=== PATIENT | male | born 1975 | race Caucasian/White ===

== ENCOUNTER 2023-02-12 18:56 | Emergency (ER) | payer OTHER ==
[2023-02-12] MEDS ORDERED: NITROGLYCERIN SL 0.4 MG TABLET SL STA (19:07)
[2023-02-12] MEDS ORDERED: ASPIRIN CHEW 81 MG TABLET PO STA (19:07)
--- NOTE | 2023-02-12 19:11 | ED Physician Documentation ---
History of Present Illness - Stated complaint Stated Complaint: CHEST PX - Chief complaint Chief Complaint: Cardiac - Additonal information Additional information: 47-year-old male who denies any pertinent past medical history including diab etes or hypertension presents emergency department for evaluation of cute onset substernal chest pain that began about 6 PM. He was simply talking with his . Initially described it as sharp but then became more pressure like and throbbing. Radiated to the left arm with some nausea. He did take a Tylenol at home. Review of Systems Constitutional: denies: Fever Cardiac: reports: Chest pain / pressure. denies: Palpitations Respiratory: reports: Reviewed and negative GI: reports: Reviewed and negative : reports: Reviewed and negative Skin: reports: Reviewed and negative PD PAST MEDICAL HISTORY - Past Surgical History Past Surgical History: No - Present Medications Home Medications: Ambulatory Orders Medication Instructions Recorded Confirmed HYDROcod/ACETAM 5/325 [Vicodin 1 - 2 ea PO Q6H PRN #15 tablet 01/09/13 5/325] No Known Home Medications 01/09/13 01/09/13 - Allergies Allergies/Adverse Reactions: Allergies Allergy/AdvReac Type Severity Reaction Status Date / Time Egg Derived AdvReac Intermediate "food Verified 02/12/23 18:59 poisoning" Penicillins AdvReac Intermediate n/v/d Verified 02/12/23 18:59 - Social History Does the pt smoke?: No Smoking Status: Never smoker Does the pt drink ETOH?: Yes Does the pt have substance abuse?: Yes PD ED PE NORMAL - General General: Alert and oriented X 3, Well developed/nourished. 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 Relevant findings are: Rate: Rate (enter#) (82) Rhythm: NSR [place]: Normal Intervals: Normal MO. No: Prolonged QT QRS: Normal Ischemia: Normal ST segments Compare to prior EKG: Old EKG unavailable Computer interpretation: Agree with computer - Labs Labs: Laboratory Tests 02/12/23 02/12/23 19:15 19:15 WBC 10.9 H RBC 5.07 Hgb 15.7 Hct 45.8 MCV 90.3 MCH 31.0 MCHC 34.3 RDW 12.4 Plt Count 301 MPV 9.5 Neut # (Auto) 6.5 Lymph # (Auto) 2.9 [place] # (Auto) 1.1 H Eos # (Auto) 0.1 Baso # (Auto) 0.1 Absolute Nucleated RBC 0.00 Nucleated RBC % 0.0 Sodium 139 Potassium 3.6 Chloride 103 Carbon Dioxide 31 Anion Gap 5.0 L BUN 12 Creatinine 0.9 Estimated GFR (MDRD) 90 Glucose 105 H Calcium 9.7 Total Bilirubin 0.4 AST 25 ALT 39 Alkaline Phosphatase 80 Troponin I High Sens 5.8 Total Protein 7.2 Albumin 4.7 Globulin 2.5 Albumin/Globulin Ratio 1.9 Lipase 48 - Rads (name of study) cxr Relevant Findings:: Final report received (No acute cardiopulmonary process) PD Medical Decision Making - ED course Complexity details: reviewed results, re-evaluated patient, considered differential, d/w patient ED course: 47-year-old male who does not seek medical care regularly presents to the emergency department for evaluation of substernal sharp chest pain that became chest pressure radiating to the left arm. Symptoms began at 6 PM. Denies any previous coronary artery disease or history of hypertension. On presentation the emergency department he is alert and very well-appearing. His initial blood pressure showed some moderate hypertension 158/102. His EKG is interpreted by myself was normal sinus rhythm without ischemic changes. Chest x-ray showed no findings of pneumothorax, pneumonia, cardiomegaly or pleural effusion. Subsequently patient did obtain CBC and electrolytes. Per my interpretation the initial CBC was without acute findings. His electrolytes including a troponin X2 were negative. With the history and presentation on exam I did administer the patient 325 of aspirin as well as gave him 0.4 mg of nitroglycerin. On reevaluation he stated that the chest pain was resolving. His blood pressure had also improved. At the time of final evaluation the patient appeared well and was free of chest pain. His heart score is 3 putting him at low risk for MACE. He is advised very close follow-up with his care team at the [facility] to request urgent referral for cardiac stress testing. He is advised to begin taking 81 mg of aspirin daily. Usual emergent return precautions for worsening symptoms were discussed Departure - Departure Disposition: Home, Self Care Clinical Impression: Chest pain Qualifiers: Chest pain type: unspecified Qualified Code(s): R07.9 - Chest pain, unspecified Condition: Stable Record reviewed to determine appropriate education?: Yes Instructions: ED Heart Disease Risk Factors Comments: You are seen today in the emergency department because you develop chest pain about 6 PM. Your chest x-ray, EKG labs and 2 troponins have all been normal. However given your age and history it is imperative that you follow closely with your primary care provider as you should be referred for an emergent or urgent cardiac stress test. I do recommend that you begin taking a daily 81 mg aspirin. If at any point you develop sudden severe chest pain, have any fainting episodes, uncontrolled vomiting or return of similar symptoms you do need to return to the emergency department. Forms: PCP List
--- NOTE | 2023-02-12 19:26 | XRAY Report ---
PROCEDURE: Chest 1 View X-Ray INDICATIONS: Chest pain TECHNIQUE: One view of the chest was acquired. COMPARISON: None. FINDINGS: Surgical changes and devices: None. Lungs and pleura: No pleural effusions or pneumothorax. Lungs are clear. Mediastinum: Mediastinal contours appear normal. Heart size is normal. Bones and chest wall: No suspicious bony lesions. Overlying soft tissues appear unremarkable. IMPRESSION: No acute cardiopulmonary process. Reviewed by: Nimisha Bell MD on 02/12/2023 7:25 PM PDT Approved by: Nimisha Bell MD on 02/12/2023 7:25 PM PDT Station ID: [id number]
[2023-02-12 19:27] LABS: BASOPHILS # (AUTO) 0.1 10^3/uL (0.0-0.1); BASOPHILS % (AUTO) 0.7 %; EOSINOPHILS # (AUTO) 0.1 10^3/uL (0.0-0.7); EOSINOPHILS % (AUTO) 1.1 %; HCT - HEMATOCRIT 45.8 % (42.0-52.0); HGB - HEMOGLOBIN 15.7 g/dL (14.0-18.0); LYMPHOCYTES # (AUTO) 2.9 10^3/uL (1.5-3.5); LYMPHOCYTES % (AUTO) 26.3 %; MEAN CORPUSCULAR HGB CONC 34.3 g/dL (32.0-36.0); MEAN CORPUSCULAR VOLUME 90.3 fL (80.0-94.0); MEAN PLATELET VOLUME 9.5 fL (7.4-11.4); MONOCYTES # (AUTO) 1.1 10^3/uL (0.0-1.0); MONOCYTES % (AUTO) 10.2 %; NEUTROPHILS # (AUTO) 6.5 10^3/uL (1.5-6.6); NEUTROPHILS % (AUTO) 60.2 %; PLT - PLATELET COUNT 301 10^3/uL (130-450); RED BLOOD COUNT 5.07 10^6/uL (4.70-6.10); RED CELL DISTRIBUTION WIDTH 12.4 % (12.0-15.0); WHITE BLOOD COUNT 10.9 x10^3/uL (4.8-10.8)
[2023-02-12 19:40] LABS: ALBUMIN 4.7 g/dL (3.2-5.5); ALBUMIN/GLOBULIN RATIO 1.9 (1.0-2.2); BILIRUBIN,TOTAL 0.4 mg/dL (0.2-1.0); CALCIUM 9.7 mg/dL (8.5-10.3); CREATININE 0.9 mg/dL (0.6-1.3); POTASSIUM 3.6 mmol/L (3.5-4.5); TOTAL PROTEIN 7.2 g/dL (6.4-8.9)
[2023-02-12 19:43] LABS: TROPONIN I HIGH SENSITIVITY 5.8 ng/L (2.3-19.7)
[2023-02-12 22:02] VITALS: BP 138/86; O2SAT 96
== END 2023-02-12 22:01 | disposition home or self-care (01) ==
LOC: ED 18:56
DX: R07.9 Chest pain, unspecified (principal); I10 Essential (primary) hypertension
CPT/HCPCS: 36415; 71045; 80053; 83690; 84484; 85025; 93005; 99283; 99284; A9270

== ENCOUNTER 2023-06-04 08:00 | Outpatient (CLI) | payer OTHER ==
--- NOTE | 2023-06-04 11:40 | XRAY Report ---
PROCEDURE: Chest 2V INDICATIONS: SHORTNESS OF BREATH TECHNIQUE: 2 views of the chest were acquired. COMPARISON: 02/12/2023 FINDINGS: Surgical changes and devices: None. Lungs and pleura: Low lung volumes. No consolidation or pleural effusion. Mediastinum: Normal heart size Bones and chest wall: Degenerative changes. IMPRESSION: No acute radiographic abnormality. Low lung volumes. Reviewed by: Aren Snell MD on 06/04/2023 11:39 AM PST Approved by: Aren Snell MD on 06/04/2023 11:39 AM PST Station ID: [id number]
== END 2023-06-04 23:59 | disposition home or self-care (01) ==
LOC: DI.S 08:00
PROVIDERS: ATTEND Registered Nurse
DX: R06.02 Shortness of breath (principal)

== ENCOUNTER 2023-10-31 10:12 | Outpatient (CLI) | payer OTHER | END 2023-10-31 23:59 | disposition home or self-care (01) | LOC: LAB.S 10:12 | PROVIDERS: ATTEND Registered Nurse | DX: L03.90 Cellulitis, unspecified (principal); N48.89 Other specified disorders of penis; R30.0 Dysuria | CPT/HCPCS: 87086 ==

== ENCOUNTER 2024-01-20 11:03 | Outpatient (CLI) | payer OTHER ==
[2024-01-20 11:29] LABS: CALCIUM 9.9 mg/dL (8.5-10.3); CREATININE 0.8 mg/dL (0.6-1.3); POTASSIUM 4.3 mmol/L (3.5-4.5)
== END 2024-01-20 11:04 | disposition home or self-care (01) ==
LOC: LAB 11:03
PROVIDERS: ATTEND Registered Nurse
DX: R30.0 Dysuria (principal)
CPT/HCPCS: 36415; 80048; 84153; 87086